=== PATIENT | male | born 1950 | race Caucasian/White ===

== ENCOUNTER 2024-10-19 09:02 | Outpatient (CLI) | payer MEDICARE | END 2024-10-19 09:03 | disposition home or self-care (01) | LOC: ULT 09:02 | PROVIDERS: ATTEND Nurse Practitioner Family | DX: Z13.6 Encounter for screening for cardiovascular disorders (principal); I77.89 Other specified disorders of arteries and arterioles | CPT/HCPCS: 76775 ==